=== PATIENT | female | born 1980 | race Caucasian/White ===

== ENCOUNTER → 2018-08-07 18:37 | Outpatient (CLI) | payer OTHER, SELFPAY ==
--- NOTE | 2018-08-07 18:41 | DI.MRI.S_ITS ---
PROCEDURE: MR KNEE LT WO CON INDICATIONS: SPRAIN/STRAIN OF LEFT KNEE TECHNIQUE: Noncontrast sagittal PD fast spin echo and T2 fast spin echo with fat saturation, sagittal 3-D FLASH with fat saturation; coronal T1 spin echo and PD fast spin echo with fat saturation, and axial PD fast spin echo with fat saturation through the knee. COMPARISON: None. FINDINGS: Image quality: Excellent. Menisci: The medial and lateral menisci demonstrate normal morphology and internal signal. The meniscal root ligaments appear intact. Cruciate ligaments: The anterior and posterior cruciate ligaments appear intact. Medial structures: The medial collateral ligament appears intact. The posterior oblique ligament, semimembranosus tendon insertions, oblique popliteal ligament, and meniscocapsular junction appear intact. Visualized portions of the pes anserinus tendons appear normal. No abnormal bursal fluid. There is marked thickening and internal signal change involving the origin of the medial gastrocnemius. Lateral structures: The lateral collateral ligament, long and short heads of the biceps femoris tendon appear intact. The popliteus tendon appears normal; the popliteofibular ligament appears intact. The posterosuperior and anteroinferior popliteomeniscal fascicles appear intact. The arcuate and fabellofibular ligaments appear intact, on either side of the lateral inferior geniculate artery. Iliotibial band appears normal. Anterior structures: Mild distal quadriceps tendinopathy. Minimal proximal patellar tendinopathy. There is mild superficial infrapatellar subcutaneous edema. Patellar alignment is normal. No femoral trochlear dysplasia or ventral trochlear prominence. No edema in the infrapatellar fat pad. Bones and cartilage: No bone marrow contusions or fractures. Within the medial and lateral compartments, there is diffuse low grade partial-thickness femoral and tibial articular cartilage loss without focal defect. Within the patellofemoral compartment, and articular cartilage appears grossly intact. Joint space: There is physiologic knee joint fluid. There is a multiloculated Blanc's cyst which measures 5.1 cm in a cephalocaudad dimension. IMPRESSION: Strain/partial tear involving the origin of the medial gastrocnemius tendon. Adjacent marrow edema within posterior medial femoral condyle could be acute marrow contusion versus reactive. Please correlate clinically. Mild distal insertional tendinopathy involving the semimembranosus. Superolateral edema within the Hoffa's fat pad raises the possibility of patellar tracking abnormality. Recommend clinical correlation as this is technically nonspecific Mild distal quadriceps tendinopathy Lbanc's cyst Dictated by: Luis A Oliver M.D. on 08/08/2018 at 8:30 Approved by: Luis A Oliver M.D. on 08/08/2018 at 8:39
== END ==
PROVIDERS: PCP Physician Assistant Medical; Visit Provider Physician Assistant Medical
DX: S86.912A Strain of unspecified muscle(s) and tendon(s) at lower leg level, left leg, initial encounter (principal); S83.92XA Sprain of unspecified site of left knee, initial encounter; M71.22 Synovial cyst of popliteal space [Baker], left knee
CPT/HCPCS: 73721

== ENCOUNTER → 2022-12-25 13:22 | Outpatient (CLI) | payer OTHER, SELFPAY ==
--- NOTE | 2022-12-25 | DI.US.S_ITS ---
PROCEDURE: US THYROID INDICATIONS: NONTOXIC MULTINODULAR GOITER TECHNIQUE: Real-time scanning was performed of the thyroid gland, with image documentation. COMPARISON: None. FINDINGS: Right: Thyroid lobe measures 3.8 x 1.5 x 1.8 cm, and is diffusely heterogeneous in echotexture. Left: Thyroid lobe measures 3.5 x 1.7 x 1.5 cm, and is diffusely heterogeneous in echotexture. Isthmus: 2 mm thick. Nodule number: 1 Location: Right inferior Size: 1.1 x 0.8 x 0.9 cm. Composition: Predominantly solid Echogenicity: Isoechoic Shape: wider than tall. Margins: Smooth Echogenic foci: None Total points: 3 ACR TI-RADS category: Mildly suspicious Nodule number: 2 Location: Left inferior medial Size: 1.3 x 1.1 x 0.9 cm. Composition: Predominantly solid Echogenicity: Hypoechoic Shape: wider than tall. Margins: Smooth Echogenic foci: None. Total points: 4 ACR TI-RADS category: Moderately suspicious Nodule number: 3 Location: Left inferior Size: 1.3 x 0.8 x 0.9 cm. Composition: Solid Echogenicity: Hypoechoic Shape: wider than tall. Margins: Smooth Echogenic foci: None Total points: 4 ACR TI-RADS category: Moderately suspicious Nodule number: 4 Location: Left inferior lateral Size: 0.5 x 0.6 x 0.7 cm. Composition: Solid Echogenicity: Isoechoic Shape: wider than tall. Margins: Smooth Echogenic foci: None Total points: 3 ACR TI-RADS category: Mildly suspicious IMPRESSION: 1. Bilateral thyroid nodules as described. Recommend continued followup ultrasound as detailed below. ACR TI-RADS definitions and recommendations: TI-RADS 1 (benign): 0 points. FNA not needed. TI-RADS 2 (not suspicious): 2 points. FNA not needed. TI-RADS 3 (mildly suspicious): 3 points. * FNA if 2.5 cm or larger, follow up if 1.5 cm or larger (at 1, 3, and 5 years). TI-RADS 4 (moderately suspicious): 4-6 points. * FNA if 1.5 cm or larger, follow up if 1 cm or larger (at 1, 2, 3, and 5 years). TI-RADS 5 (highly suspicious): 7 points or more. * FNA if 1 cm or larger, follow up if 0.5 cm or larger (every year for 5 years). Dictated by: Rizwan VUONG Interpreted: Arjun Menchaca MD on 12/25/2022 at 14:49 Transcribed by: DHRUV on 12/25/2022 at 14:51 Approved by: Arjun Menchaca M.D. on 12/27/2022 at 11:34
== END ==
PROVIDERS: PCP Physician Assistant Medical; Referring Provider Physician Assistant Medical; Visit Provider Physician Assistant Medical
DX: E04.2 Nontoxic multinodular goiter (principal)
CPT/HCPCS: 76536

== ENCOUNTER 2024-11-06 14:15 | Day surgery (SDC) | payer OTHER, SELFPAY ==
[2024-11-06 14:42] VITALS: BP 110/76; PULSE 76; RESP 16; TEMP 36.7; O2SAT 100
--- NOTE | 2024-11-06 15:18 | P.HP_ITS ---
History of Present Illness History of Present Illness Date Patient Seen: 11/06/24 Time Patient Seen: 15:19 Chief complaint: Colonoscopy Narrative: Amanda is here for her colonoscopy. Please see the office note from September for details. [facility] Medical History (Updated 09/29/24 @ 11:37 by Ajay Owens MD) Allergic rhinitis Anxiety Lumbar radiculopathy Multinodular goiter Hypertension Social History Smoking Status: Former smoker alcohol intake: current Meds Home Medications and Allergies Home Medications Medication Instructions Recorded Confirmed Type dextroamphetamine-amphetamine ER 20 mg PO DAILY 09/29/24 09/29/24 History 20 mg 24hr capsule,extend release (Adderall XR) levonorgestrel 21 mcg/24 hr (up to intrauterine 09/29/24 09/29/24 History 8 years) 52 mg intrauterine device (Mirena) naproxen 500 mg tablet 500 mg PO BID 09/29/24 09/29/24 History sodium,potassium,mag sulfates 17.5 See Rx Instructions PO .COMPLEX 09/29/24 Rx gram-3.13 gram-1.6 gram oral soln #354 mL (Suprep Bowel Prep Kit) telmisartan 40 mg tablet 40 mg PO DAILY 09/29/24 09/29/24 History Allergies Allergy/AdvReac Type Severity Reaction Status Date / Time latex [LATEX] Allergy Unknown Verified 11/06/24 14:35 methylprednisolone Allergy Unknown Verified 11/06/24 14:35 [METHYLPREDNISOLONE] Penicillins [PENICILLINS] Allergy Unknown Verified 11/06/24 14:35 Exam Vital Signs (past 8 hours): - 11/06/24 14:42 Temperature 98.1 F Pulse Rate 76 Respiratory Rate 16 Blood Pressure 110/76 Pulse Oximetry 100 Oxygen Delivery Method Room Air Oxygen Delivery Method Room Air Const General: healthy appearing Resp Effort & Inspection: normal respiratory effort Assessment & Plan Assessment and plan (1) Colon cancer screening: Status: Acute Plan Colonoscopy Time-Based Coding :: [TOTAL MINUTES] spent with patient and on the chart (including review of chart, obtaining history, exam, reviewing outside data, placing orders, documenting exam and treatment plan, and counseling patient) on [DATE].
--- NOTE | 2024-11-06 15:51 | PM.OP.COLON ---
Operative Date/Time/Diagnoses Date of procedure: 11/06/24 Time of procedure: 15:51 Pre-op diagnosis: Colonoscopy Post-op diagnosis: same Procedure & Clinicians Study performed: Colonoscopy Same procedure as scheduled: Yes Surgeon: Ajay Owens Procedure Notes Procedure in detail: Surgeon: Ajay Owens MD Anesthesia: Maria Alejandra Novak CRNA Procedure: The patient was brought to the endoscopy suite, placed in left lateral decubitus position. The patient was connected to monitoring devices. A time-out was performed. Sedation was administered. Once the patient was adequately sedated, a digital rectal exam was performed and was normal. The scope was then inserted and advanced to the cecum where the appendiceal orifice was identified and photographed. The scope was then slowly withdrawn over greater than 6 minutes. The mucosa was thoroughly inspected. No abnormalities were identified. The scope was retroflexed in the rectum. The scope was straightened and removed. The patient was awakened and brought to recovery. Scope withdrawal time: 8 minutes Sedation time: 14 minute EBL: 0 Findings: Normal colon Post-procedure Recommendations: Colonoscopy in 10 years Disposition: PACU
[2024-11-06 15:55] VITALS: BP 98/67; PULSE 106; RESP 16; TEMP 36.8; O2SAT 98
[2024-11-06 15:59] VITALS: BP 98/60; PULSE 107; RESP 16; TEMP 36.2; O2SAT 98
== END 2024-11-06 16:11 | disposition home or self-care (01) ==
PROVIDERS: PCP Physician Assistant Medical; Referring Provider Surgery; Visit Provider Surgery
PROC: 0DJD8ZZ Inspection of Lower Intestinal Tract, Via Natural or Artificial Opening Endoscopic (ICD-10-PCS; CPT 45378; principal; 2024-11-06 15:30)
DX: Z12.11 Encounter for screening for malignant neoplasm of colon (principal); R19.5 Other fecal abnormalities
CPT/HCPCS: 45378; J2405; J2704